=== PATIENT | male | born 1980 | race Asian ===

== ENCOUNTER 2022-03-30 08:16 | Inpatient (IN) | payer MEDICAID ==
[~2022-03-30] VITALS: Ht 175.3 cm; Wt 56.2 kg
[~2022-03-30 08:16] MED LIST: NO MEDS
[2022-03-30] MEDS ORDERED: OLAN5TAB52 PO (09:26)
[2022-03-30 09:46] LABS: GLUCOMETER DEV NAME(LOC) POC.BV
[2022-03-30 10:50] VITALS: BP 139/82
[2022-03-30] MEDS: HALOPERIDOL 5 MG TABLET PO PRN (11:02)
[2022-03-30] MEDS: LORazepam 2 MG TABLET PO PRN (11:02)
[2022-03-30] MEDS ORDERED: OLANZapine 5 MG RAPDIS TABLET PO ONE (12:45)
[2022-03-30] MEDS ORDERED: SERTRALINE HCL 50 MG TABLET PO ONE (12:45)
[2022-03-30] MEDS: ZOLPIDEM TARTRATE 10 MG TABLET PO PRN (20:10)
[2022-03-30] MEDS: OLANZapine 5 MG RAPDIS TABLET PO SCH (20:11)
[2022-03-30 20:25] VITALS: BP 105/70
[2022-03-30] MEDS ORDERED: INFLUENZA VIRUS VACCINE QVS 2022-23 (6MO+)/PF 60 MCG/0.5 ML SYRINGE IM. ONE (21:00)
[2022-03-31] MEDS ORDERED: PETROLATUM,WHITE 28 GM JELLY TP PRN (06:45)
[2022-03-31] MEDS ORDERED: BACITRACIN 28 GM OINTMENT TP PRN (06:45)
[2022-03-31] MEDS ORDERED: BENZOCAINE/MENTHOL LOZENGE PO PRN (06:45)
[2022-03-31] MEDS ORDERED: ALBUTEROL SULFATE HFA 90 MCG/PUFF 8 GM INHALER IH PRN (06:45)
[2022-03-31] MEDS ORDERED: LOPERAMIDE HCL 2 MG CAPSULE PO PRN (06:45)
[2022-03-31] MEDS ORDERED: DOCUSATE SODIUM 100 MG CAPSULE PO PRN (06:45)
[2022-03-31] MEDS ORDERED: MAGNESIUM HYDROXIDE SUSPENSION 30 ML UDCUP PO PRN (06:45)
[2022-03-31] MEDS ORDERED: MAG HYDROX/AL HYDROX/SIMETH ES 30 ML SUSPENSION UDCUP PO PRN (06:45)
[2022-03-31] MEDS ORDERED: ACETAMINOPHEN 325 MG TABLET PO PRN (06:45)
[2022-03-31] MEDS ORDERED: OMEPRAZOLE 20 MG CAPSULE PO PRN (06:45)
[2022-03-31] MEDS ORDERED: IBUPROFEN 600 MG TABLET PO PRN (06:45)
[2022-03-31] MEDS ORDERED: CloNIDine HCL 0.1 MG TABLET PO PRN (06:45)
[2022-03-31] MEDS ORDERED: ONDANSETRON HCL 4 MG TABLET PO PRN (06:45)
[2022-03-31 07:59] LABS: BASOPHILS % (AUTO) 0.9 % (0.0-2.0); EOSINOPHILS % (AUTO) 1.2 % (1.0-6.0); HEMATOCRIT 46.6 % (41-53); HEMOGLOBIN 15.6 g/dL (13.5-17.5); LYMPHOCYTES # (AUTO) 1.4 K/uL (1.0-4.8); LYMPHOCYTES % (AUTO) 14.4 % (22.0-44.0); MEAN CORPUSCULAR HEMOGLOBIN 29.8 pg (26.0-34.0); MEAN CORPUSCULAR HGB CONC 33.5 G/dL (31.0-37.0); MEAN CORPUSCULAR VOLUME 89 fL (80-100); MONOCYTES # (AUTO) 0.5 K/uL (0.1-1.0); MONOCYTES % (AUTO) 5.4 % (2.0-9.0); NEUTROPHILS # (AUTO) 7.8 K/uL (1.8-7.7); NEUTROPHILS % (AUTO) 78.1 % (40.0-70.0); PLATELET COUNT (AUTO) 366 K/uL (150-450); RED BLOOD CELL COUNT(AUTO) 5.23 MIL/uL (4.50-5.90); RED CELL DISTRIBUTION WIDTH 13.9 % (11.5-14.5)
[2022-03-31 08:13] LABS: APPEARANCE,URINE CLEAR (CLEAR); BILIRUBIN,URINE NEGATIVE (NEGATIVE); GLUCOSE, URINE (UA) NEGATIVE (NEGATIVE); KETONES,URINE NEGATIVE (NEGATIVE); LEUKOCYTE ESTERASE ,URINE NEGATIVE (NEGATIVE); NITRATE,URINE NEGATIVE (NEGATIVE); OCCULT BLOOD,URINE NEGATIVE (NEGATIVE); PH,URINE 6.5 (5.0-8.0); PROTEIN,URINE NEGATIVE (NEGATIVE); SPECIFIC GRAVITIY, URINE 1.009 (1.003-1.030); UROBILINOGEN,URINE <=1.0 mg/dL (<=1.0)
[2022-03-31 08:19] LABS: AMPHET/METH SCREEN,URINE NEGATIVE (NEGATIVE); BARBITURATE SCREEN, URINE NEGATIVE (NEGATIVE); BENZODIAZEPINES SCREEN,URINE NEGATIVE (NEGATIVE); CANNABINOID SCREEN,URINE POSITIVE (NEGATIVE); COCAINE SCREEN,URINE NEGATIVE (NEGATIVE); METHADONE SCREEN, URINE NEGATIVE (NEGATIVE); OPIATE SCREEN,URINE NEGATIVE (NEGATIVE)
[2022-03-31 08:22] LABS: PHENCYCLIDINE SCREEN,URINE NEGATIVE (NEGATIVE)
[2022-03-31 08:24] LABS: ALANINE AMINOTRANSFERASE 24 U/L (12-78); ALBUMIN 4.2 g/dL (3.4-5.0); ALKALINE PHOSPHATASE 84 U/L (46-116); ANION GAP 7 mmol/L (8-16); ASPARTATE AMINOTRANSFERASE 13 U/L (15-37); BILIRUBIN,TOTAL 0.7 mg/dL (0.1-1.0); CALCIUM, TOTAL 9.9 mg/dL (8.8-10.5); CARBON DIOXIDE 29 mmol/L (22-29); CHLORIDE 102 mmol/L (98-107); CHOL/HDL RATIO 2.5 (4.2-7.3); CHOLESTEROL 201 mg/dL (131-200); CREATININE 1.02 mg/dL (0.60-1.30); FREE T4 (FREE THYROXINE) 1.01 ng/dL (0.76-1.46); GLOMERULAR FILTR. RATE CALC > 60 mL/min (>60); GLUCOSE,RANDOM 106 mg/dL (70-110); HDL CHOLESTEROL 81 mg/dL (40-60); LDL CHOL (CALC.) 100 mg/dL (0-130); POTASSIUM 4.5 mmol/L (3.5-5.1); SODIUM SERUM 138 mmol/L (136-145); THYROID STIMULATING HORMONE 0.86 uIU/mL (0.36-3.74); TRIGLYCERIDES 100 mg/dL (15-150); UREA NITROGEN, BLOOD 18 mg/dL (7-18)
[2022-03-31 08:27] VITALS: BP 140/90
[2022-03-31] MEDS: OLANZapine 5 MG RAPDIS TABLET PO SCH ×2 (08:27→20:19)
[2022-03-31] MEDS: SERTRALINE HCL 50 MG TABLET PO SCH (08:27)
[2022-03-31 20:18] VITALS: BP 111/76
[2022-03-31] MEDS: ZOLPIDEM TARTRATE 10 MG TABLET PO PRN (20:19)
[2022-04-01 08:01] VITALS: BP 119/80
[2022-04-01] MEDS: SERTRALINE HCL 50 MG TABLET PO SCH (09:44)
[2022-04-01] MEDS: OLANZapine 5 MG RAPDIS TABLET PO SCH ×2 (09:45→20:12)
[2022-04-01 20:08] VITALS: BP 130/94
[2022-04-01] MEDS: ZOLPIDEM TARTRATE 10 MG TABLET PO PRN (21:26)
[2022-04-02] MEDS: SERTRALINE HCL 50 MG TABLET PO SCH (08:21)
[2022-04-02] MEDS: OLANZapine 5 MG RAPDIS TABLET PO SCH ×2 (08:21→20:09)
[2022-04-02 08:35] VITALS: BP 140/90
[2022-04-02] MEDS: LORazepam 2 MG TABLET PO PRN (14:33)
[2022-04-02] MEDS: HALOPERIDOL 5 MG TABLET PO PRN (14:33)
[2022-04-02 20:07] VITALS: BP 124/79
[2022-04-03 08:05] VITALS: BP 143/76
[2022-04-03] MEDS: OLANZapine 5 MG RAPDIS TABLET PO SCH (09:09)
[2022-04-03] MEDS: SERTRALINE HCL 50 MG TABLET PO SCH (09:09)
[2022-04-03] MEDS ORDERED: OLAN5TAB94 PO (11:53)
[2022-04-03] MEDS ORDERED: SERT-439 PO (11:53)
== END 2022-04-03 13:15 | disposition home or self-care (01) | DRG 750 ==
LOC: B2S 09:31
PROVIDERS: ADMIT Psychiatry & Neurology Psychiatry; ATTEND Psychiatry & Neurology Psychiatry
DX: F25.1 Schizoaffective disorder, depressive type (principal); R45.851 Suicidal ideations; F12.10 Cannabis abuse, uncomplicated; G47.00 Insomnia, unspecified; K59.00 Constipation, unspecified; Z20.822 Contact with and (suspected) exposure to COVID-19; F17.210 Nicotine dependence, cigarettes, uncomplicated; F10.10 Alcohol abuse, uncomplicated; Z79.899 Other long term (current) drug therapy
CPT/HCPCS: 80053; 80061; 80307; 81003; 84439; 84443; 85025; 86592

== ENCOUNTER 2022-05-30 14:21 | Inpatient (IN) | payer MEDICAID ==
[~2022-05-30] VITALS: Ht 177.8 cm; Wt 61.7 kg
[~2022-05-30 14:21] MED LIST changes: -NO MEDS; +OLAN5TAB94 PO; +SERT-439 PO
[2022-05-30 16:06] LABS: GLUCOMETER DEV NAME(LOC) POC.BV
[2022-05-30] MEDS ORDERED: CYCL5TAB PO (16:29)
[2022-05-30] MEDS ORDERED: ZOLPIDEM TARTRATE 10 MG TABLET PO PRN (20:15)
[2022-05-30] MEDS ORDERED: HALOPERIDOL 5 MG TABLET PO PRN (20:15)
[2022-05-30 20:54] VITALS: BP 139/78
[2022-05-30] MEDS ORDERED: TRAZ-252 PO (21:01)
[2022-05-30] MEDS ORDERED: RISP1TAB48 PO (21:01)
[2022-05-30 21:10] VITALS: BP 119/77
[2022-05-31 07:42] LABS: BASOPHILS % (AUTO) 0.8 % (0.0-2.0); EOSINOPHILS % (AUTO) 3.1 % (1.0-6.0); HEMATOCRIT 43.9 % (41-53); LYMPHOCYTES # (AUTO) 1.2 K/uL (1.0-4.8); MEAN CORPUSCULAR HGB CONC 34.1 G/dL (31.0-37.0); MEAN CORPUSCULAR VOLUME 88 fL (80-100); MONOCYTES # (AUTO) 0.7 K/uL (0.1-1.0); MONOCYTES % (AUTO) 7.9 % (2.0-9.0); NEUTROPHILS # (AUTO) 6.1 K/uL (1.8-7.7); NEUTROPHILS % (AUTO) 73.2 % (40.0-70.0); PLATELET COUNT (AUTO) 361 K/uL (150-450); RED BLOOD CELL COUNT(AUTO) 4.99 MIL/uL (4.50-5.90); RED CELL DISTRIBUTION WIDTH 13.1 % (11.5-14.5)
[2022-05-31] MEDS: LORazepam 2 MG TABLET PO PRN (08:18)
[2022-05-31 08:43] LABS: ALANINE AMINOTRANSFERASE 23 U/L (12-78); ALBUMIN 3.8 g/dL (3.4-5.0); ALKALINE PHOSPHATASE 84 U/L (46-116); ANION GAP 5 mmol/L (8-16); ASPARTATE AMINOTRANSFERASE 16 U/L (15-37); BILIRUBIN,TOTAL 0.4 mg/dL (0.1-1.0); CALCIUM, TOTAL 9.6 mg/dL (8.8-10.5); CARBON DIOXIDE 31 mmol/L (22-29); CHLORIDE 103 mmol/L (98-107); CHOL/HDL RATIO 2.4 (4.2-7.3); CHOLESTEROL 195 mg/dL (131-200); FREE T4 (FREE THYROXINE) 0.92 ng/dL (0.76-1.46); GLOMERULAR FILTR. RATE CALC > 60 mL/min (>60); GLUCOSE,RANDOM 102 mg/dL (70-110); HDL CHOLESTEROL 82 mg/dL (40-60); LDL CHOL (CALC.) 103 mg/dL (0-130); POTASSIUM 4.9 mmol/L (3.5-5.1); SODIUM SERUM 139 mmol/L (136-145); THYROID STIMULATING HORMONE 1.87 uIU/mL (0.36-3.74); TOTAL PROTEIN, SERUM 7.7 g/dL (6.4-8.2); TRIGLYCERIDES 50 mg/dL (15-150); UREA NITROGEN, BLOOD 16 mg/dL (7-18)
[2022-05-31 08:55] VITALS: BP 125/93
[2022-05-31] MEDS ORDERED: NAPR-1025 PO (11:11)
[2022-05-31] MEDS ORDERED: RISP2TAB45 PO (11:11)
[2022-05-31] MEDS ORDERED: IBUPROFEN 400 MG TABLET PO PRN (11:15)
[2022-05-31] MEDS ORDERED: MAGNESIUM HYDROXIDE SUSPENSION 30 ML UDCUP PO PRN (11:15)
[2022-05-31] MEDS ORDERED: DOCUSATE SODIUM 100 MG CAPSULE PO PRN (11:15)
[2022-05-31] MEDS ORDERED: LOPERAMIDE HCL 2 MG CAPSULE PO PRN (11:15)
[2022-05-31] MEDS ORDERED: ONDANSETRON HCL 4 MG TABLET PO PRN (11:15)
[2022-05-31] MEDS ORDERED: ALBUTEROL SULFATE HFA 90 MCG/PUFF 8 GM INHALER IH PRN (11:15)
[2022-05-31] MEDS ORDERED: CloNIDine HCL 0.1 MG TABLET PO PRN (11:15)
[2022-05-31] MEDS ORDERED: PETROLATUM,WHITE 28 GM JELLY TP PRN (11:15)
[2022-05-31] MEDS ORDERED: ACETAMINOPHEN 325 MG TABLET PO PRN (11:15)
[2022-05-31] MEDS ORDERED: NICOTINE 14 MG/24 HOUR PATCH TD PRN (11:15)
[2022-05-31] MEDS ORDERED: GuaiFENesin/D-METHORPHAN [SUGAR-FREE] 200-20MG/10 ML SYRUP UDCUP PO PRN (11:15)
[2022-05-31] MEDS ORDERED: MAG HYDROX/AL HYDROX/SIMETH ES 30 ML SUSPENSION UDCUP PO PRN (11:15)
[2022-05-31 20:06] VITALS: BP 117/80
[2022-05-31] MEDS: TraZODone HCL 100 MG TABLET PO SCH (20:21)
[2022-05-31] MEDS: RisperiDONE 2 MG TABLET PO SCH (20:22)
[2022-06-01 08:06] LABS: HEPATITIS C AB (EIA) Non Reactive (Non Reactive)
[2022-06-01 08:12] VITALS: BP 115/71
[2022-06-01] MEDS: LORazepam 2 MG TABLET PO PRN (08:22)
[2022-06-01] MEDS: TraZODone HCL 100 MG TABLET PO SCH (20:35)
[2022-06-01] MEDS: RisperiDONE 2 MG TABLET PO SCH (20:35)
[2022-06-01 21:01] VITALS: BP 112/83
[2022-06-02] MEDS: LORazepam 2 MG TABLET PO PRN (09:51)
[2022-06-02 10:51] VITALS: BP 120/80
[2022-06-02] MEDS: RisperiDONE 2 MG TABLET PO SCH (20:38)
[2022-06-02] MEDS: TraZODone HCL 100 MG TABLET PO SCH (20:38)
[2022-06-02 21:47] VITALS: BP 112/73
[2022-06-03 08:47] VITALS: BP 118/82
[2022-06-03] MEDS: LORazepam 2 MG TABLET PO PRN ×2 (09:00→15:59)
[2022-06-03] MEDS: TraZODone HCL 100 MG TABLET PO SCH (20:11)
[2022-06-03] MEDS: RisperiDONE 2 MG TABLET PO SCH (20:11)
[2022-06-03 20:52] VITALS: BP 110/78
[2022-06-04 09:38] VITALS: BP 106/64
[2022-06-04] MEDS: LORazepam 2 MG TABLET PO PRN (09:46)
[2022-06-04] MEDS: TraZODone HCL 100 MG TABLET PO SCH (20:30)
[2022-06-04] MEDS: RisperiDONE 2 MG TABLET PO SCH (20:30)
[2022-06-04 20:40] VITALS: BP 118/76
[2022-06-05 09:25] VITALS: BP 114/71
[2022-06-05] MEDS: LORazepam 2 MG TABLET PO PRN (12:07)
[2022-06-05 12:56] LABS: GLUCOMETER DEV NAME(LOC) POC.BV
[2022-06-05] MEDS ORDERED: RISP4TAB73 PO (13:43)
[2022-06-05] MEDS ORDERED: TRAZ-257 PO (13:43)
[2022-06-06] MEDS ORDERED: TRAZ-257 PO (05:38)
[2022-06-06] MEDS ORDERED: RISP2TAB86 PO (05:38)
== END 2022-06-05 16:00 | disposition home or self-care (01) | DRG 750 ==
LOC: B2S 20:29
PROVIDERS: ADMIT Psychiatry & Neurology Psychiatry; ATTEND Psychiatry & Neurology Psychiatry
DX: F25.1 Schizoaffective disorder, depressive type (principal); F10.10 Alcohol abuse, uncomplicated; G47.00 Insomnia, unspecified; Z20.822 Contact with and (suspected) exposure to COVID-19; Z79.899 Other long term (current) drug therapy
CPT/HCPCS: 80053; 80061; 84439; 84443; 85025; 86709; 86803

== ENCOUNTER 2022-05-30 16:22 | Emergency (ER) | payer MEDICAID, OTHER ==
[~2022-05-30] VITALS: Ht 177.8 cm; Wt 65.9 kg
[2022-05-30] MEDS ORDERED: CYCL5TAB PO (16:29)
[2022-05-30] MEDS ORDERED: ONDANSETRON HCL 4 MG TABLET PO ONE (16:45)
[2022-05-30 17:36] LABS: COVID AG,FIA SOURCE NASOPHARYNGEAL
[2022-05-30 17:41] LABS: APPEARANCE,URINE HAZY (CLEAR); BILIRUBIN,URINE NEGATIVE (NEGATIVE); GLUCOSE, URINE (UA) NEGATIVE (NEGATIVE); KETONES,URINE NEGATIVE (NEGATIVE); LEUKOCYTE ESTERASE ,URINE NEGATIVE (NEGATIVE); NITRATE,URINE NEGATIVE (NEGATIVE); OCCULT BLOOD,URINE NEGATIVE (NEGATIVE); PH,URINE 7.5 (5.0-8.0); PROTEIN,URINE NEGATIVE (NEGATIVE); SPECIFIC GRAVITIY, URINE 1.014 (1.003-1.030); UROBILINOGEN,URINE <=1.0 mg/dL (<=1.0)
[2022-05-30 17:47] LABS: AMPHET/METH SCREEN,URINE NEGATIVE (NEGATIVE); BARBITURATE SCREEN, URINE NEGATIVE (NEGATIVE); BENZODIAZEPINES SCREEN,URINE NEGATIVE (NEGATIVE); CANNABINOID SCREEN,URINE POSITIVE (NEGATIVE); COCAINE SCREEN,URINE NEGATIVE (NEGATIVE); METHADONE SCREEN, URINE NEGATIVE (NEGATIVE); OPIATE SCREEN,URINE NEGATIVE (NEGATIVE); PHENCYCLIDINE SCREEN,URINE NEGATIVE (NEGATIVE)
[2022-05-30 18:04] LABS: BASOPHILS % (AUTO) 0.7 % (0.0-2.0); EOSINOPHILS % (AUTO) 1.8 % (1.0-6.0); HEMATOCRIT 43.6 % (41-53); HEMOGLOBIN 14.9 g/dL (13.5-17.5); LYMPHOCYTES # (AUTO) 1.9 K/uL (1.0-4.8); LYMPHOCYTES % (AUTO) 16.6 % (22.0-44.0); MEAN CORPUSCULAR HGB CONC 34.1 G/dL (31.0-37.0); MEAN CORPUSCULAR VOLUME 88 fL (80-100); MONOCYTES # (AUTO) 1.1 K/uL (0.1-1.0); MONOCYTES % (AUTO) 9.8 % (2.0-9.0); NEUTROPHILS # (AUTO) 8.2 K/uL (1.8-7.7); NEUTROPHILS % (AUTO) 71.1 % (40.0-70.0); PLATELET COUNT (AUTO) 371 K/uL (150-450); RED BLOOD CELL COUNT(AUTO) 4.96 MIL/uL (4.50-5.90); RED CELL DISTRIBUTION WIDTH 13.1 % (11.5-14.5)
[2022-05-30 18:22] LABS: ANION GAP 7 mmol/L (8-16); CALCIUM, TOTAL 9.4 mg/dL (8.8-10.5); CARBON DIOXIDE 29 mmol/L (22-29); CHLORIDE 101 mmol/L (98-107); CREATININE 1.06 mg/dL (0.60-1.30); GLOMERULAR FILTR. RATE CALC > 60 mL/min (>60); GLUCOSE,RANDOM 112 mg/dL (70-110); SODIUM SERUM 137 mmol/L (136-145); UREA NITROGEN, BLOOD 15 mg/dL (7-18)
[2022-05-30 18:27] LABS: ALANINE AMINOTRANSFERASE 24 U/L (12-78); ALKALINE PHOSPHATASE 91 U/L (46-116); ASPARTATE AMINOTRANSFERASE 18 U/L (15-37); BILIRUBIN,TOTAL 0.3 mg/dL (0.1-1.0); LIPASE 116 U/L (73-393); TOTAL PROTEIN, SERUM 7.7 g/dL (6.4-8.2)
[2022-05-30] MEDS ORDERED: LORazepam 1 MG TABLET PO ONE (19:00)
[2022-05-30] MEDS ORDERED: QUEtiapine FUMARATE 25 MG TABLET PO ONE (19:00)
[2022-05-30 19:01] VITALS: BP 129/75
[2022-05-30] MEDS ORDERED: RISP1TAB48 PO (21:01)
[2022-05-30] MEDS ORDERED: TRAZ-252 PO (21:01)
[2022-05-31] MEDS ORDERED: NAPR-1025 PO (11:11)
[2022-05-31] MEDS ORDERED: RISP2TAB45 PO (11:11)
== END 2022-05-30 19:15 | disposition home or self-care (01) ==
LOC: EMS 16:27
DX: F25.1 Schizoaffective disorder, depressive type (principal); F41.9 Anxiety disorder, unspecified; G47.00 Insomnia, unspecified; F12.90 Cannabis use, unspecified, uncomplicated; F15.90 Other stimulant use, unspecified, uncomplicated; F17.210 Nicotine dependence, cigarettes, uncomplicated; Z90.49 Acquired absence of other specified parts of digestive tract; Z20.822 Contact with and (suspected) exposure to COVID-19
CPT/HCPCS: 99284; 87426; 80053; 83690; 85025; 36415; 81003; 80307 ×2; G0480; Q0162

== ENCOUNTER 2022-06-14 11:07 | Emergency (ER) | payer MEDICAID, OTHER ==
[~2022-06-14] VITALS: Ht 172.7 cm; Wt 65.9 kg
[~2022-06-14 11:07] MED LIST changes: -OLAN5TAB94 PO; +RISP2TAB86 PO; +RISP4TAB73 PO; -SERT-439 PO; +TRAZ-257 PO
[2022-06-14 12:44] LABS: BASOPHILS % (AUTO) 0.4 % (0.0-2.0); EOSINOPHILS % (AUTO) 1.1 % (1.0-6.0); HEMATOCRIT 47.2 % (41-53); HEMOGLOBIN 15.7 g/dL (13.5-17.5); LYMPHOCYTES # (AUTO) 1.4 K/uL (1.0-4.8); LYMPHOCYTES % (AUTO) 11.6 % (22.0-44.0); MEAN CORPUSCULAR HEMOGLOBIN 29.3 pg (26.0-34.0); MEAN CORPUSCULAR HGB CONC 33.2 G/dL (31.0-37.0); MEAN CORPUSCULAR VOLUME 88 fL (80-100); MONOCYTES # (AUTO) 0.9 K/uL (0.1-1.0); MONOCYTES % (AUTO) 7.4 % (2.0-9.0); NEUTROPHILS # (AUTO) 9.5 K/uL (1.8-7.7); NEUTROPHILS % (AUTO) 79.5 % (40.0-70.0); PLATELET COUNT (AUTO) 409 K/uL (150-450); RED BLOOD CELL COUNT(AUTO) 5.34 MIL/uL (4.50-5.90); RED CELL DISTRIBUTION WIDTH 13.2 % (11.5-14.5)
[2022-06-14 12:47] LABS: CARBON DIOXIDE 29 mmol/L (22-29); CHLORIDE 99 mmol/L (98-107); POTASSIUM 4.1 mmol/L (3.5-5.1); SODIUM SERUM 138 mmol/L (136-145)
[2022-06-14 12:48] LABS: ANION GAP 10 mmol/L (8-16); CALCIUM, TOTAL 10.1 mg/dL (8.8-10.5); CREATININE 1.01 mg/dL (0.60-1.30); GLOMERULAR FILTR. RATE CALC > 60 mL/min (>60); GLUCOSE,RANDOM 112 mg/dL (70-110); UREA NITROGEN, BLOOD 14 mg/dL (7-18)
[2022-06-14 12:53] LABS: ALANINE AMINOTRANSFERASE 23 U/L (12-78); ALBUMIN 4.4 g/dL (3.4-5.0); ALKALINE PHOSPHATASE 107 U/L (46-116); ASPARTATE AMINOTRANSFERASE 19 U/L (15-37); BILIRUBIN,TOTAL 0.9 mg/dL (0.1-1.0); LIPASE 117 U/L (73-393); TOTAL PROTEIN, SERUM 8.5 g/dL (6.4-8.2)
[2022-06-14 12:58] LABS: APPEARANCE,URINE CLEAR (CLEAR); BILIRUBIN,URINE NEGATIVE (NEGATIVE); GLUCOSE, URINE (UA) NEGATIVE (NEGATIVE); LEUKOCYTE ESTERASE ,URINE NEGATIVE (NEGATIVE); NITRATE,URINE NEGATIVE (NEGATIVE); OCCULT BLOOD,URINE SMALL (NEGATIVE); PROTEIN,URINE NEGATIVE (NEGATIVE); SPECIFIC GRAVITIY, URINE 1.015 (1.003-1.030); UROBILINOGEN,URINE <=1.0 mg/dL (<=1.0)
[2022-06-14 13:03] LABS: AMPHET/METH SCREEN,URINE NEGATIVE (NEGATIVE); BARBITURATE SCREEN, URINE NEGATIVE (NEGATIVE); BENZODIAZEPINES SCREEN,URINE NEGATIVE (NEGATIVE); CANNABINOID SCREEN,URINE POSITIVE (NEGATIVE); COCAINE SCREEN,URINE NEGATIVE (NEGATIVE); METHADONE SCREEN, URINE NEGATIVE (NEGATIVE); OPIATE SCREEN,URINE NEGATIVE (NEGATIVE); PHENCYCLIDINE SCREEN,URINE NEGATIVE (NEGATIVE)
[2022-06-14 13:11] LABS: BACTERIA,URINE Rare /HPF (None Seen); RBC,URINE 0-2 /HPF (0-2); WBC,URINE None Seen /HPF (0-5)
[2022-06-14 13:55] VITALS: BP 137/72
== END 2022-06-14 13:59 | disposition home or self-care (01) ==
LOC: EMS 11:07
DX: R10.32 Left lower quadrant pain (principal); F41.9 Anxiety disorder, unspecified; F12.90 Cannabis use, unspecified, uncomplicated; F20.9 Schizophrenia, unspecified; F17.210 Nicotine dependence, cigarettes, uncomplicated; F15.90 Other stimulant use, unspecified, uncomplicated; Z90.49 Acquired absence of other specified parts of digestive tract
CPT/HCPCS: 74176; 76870; 80053; 80307; 81001; 83690; 85025; 99284